=== PATIENT | male | born 1975 | race Caucasian/White ===

== ENCOUNTER → 2016-06-15 | Outpatient (CLI) | payer OTHER ==
--- NOTE | 2016-06-18 10:04 | DIREP ---
PROCEDURE: XRAY ELBOW 2VWS-LT COMPARISON: None. INDICATIONS: LT KNEE PAIN, LT ELBOW FRACTURE, LUMBAGO FINDINGS: BONES: Normal. JOINTS: Normal. No displaced anterior or posterior fat pads. SOFT TISSUES: Normal. OTHER: Normal. CONCLUSION: No visible acute osseous fracture, elbow joint effusion, radiopaque soft tissue foreign body or visible soft tissue swelling. Dictated by: Anuj Barnes M.D. on 06/15/2016 at 01:47 PM [facility]
--- NOTE | 2016-06-18 10:06 | DIREP ---
PROCEDURE: XRAY SPINE LUMBAR 2-3 VWS COMPARISON: None. INDICATIONS: LT KNEE PAIN, LT ELBOW FRACTURE, LUMBAGO FINDINGS: ALIGNMENT: Normal. VERTEBRAE: Normal. DISK SPACES: Normal. SPONDYLOLISTHESIS: None. SACROILIAC JOINTS: Normal. OTHER: Normal. CONCLUSION: No visible acute osseous fracture. Normal alignment and curvature. Dictated by: Anuj Barnes M.D. on 06/15/2016 at 01:51 PM [facility]
--- NOTE | 2016-06-18 10:07 | DIREP ---
PROCEDURE: XRAY KNEE 1-2 VWS-LT COMPARISON: None. INDICATIONS: LT KNEE PAIN, LT ELBOW FRACTURE, LUMBAGO FINDINGS: BONES: Normal. JOINTS: Normal. SOFT TISSUES: Normal. OTHER: No additional findings. CONCLUSION: No visible acute osseous fracture, dislocation, knee joint effusion or radiopaque soft tissue foreign body. Dictated by: Anuj Barnes M.D. on 06/15/2016 at 01:49 PM [facility]
== END | disposition home or self-care (01) ==
LOC: RAD 12:22
PROVIDERS: ATTEND Nurse Practitioner Family
DX: S42.402A Unspecified fracture of lower end of left humerus, initial encounter for closed fracture (principal); X58.XXXA Exposure to other specified factors, initial encounter; Y93.89 Activity, other specified; Y92.89 Other specified places as the place of occurrence of the external cause; Y99.8 Other external cause status
CPT/HCPCS: 72100; 73070-LT; 73560-LT

== ENCOUNTER → 2022-11-12 | Outpatient (CLI) | payer OTHER | END | disposition home or self-care (01) | LOC: RAD 08:19 | PROVIDERS: ATTEND Nurse Practitioner | DX: Z00.00 Encounter for general adult medical examination without abnormal findings (principal) | CPT/HCPCS: 71046 ==